=== PATIENT | female | born 1950 | race Caucasian/White ===

== ENCOUNTER 2018-10-01 07:31 | Outpatient (CLI) | payer MEDICARE, OTHER ==
--- NOTE | 2018-10-01 10:58 | Ultrasound Report ---
Reason: PAIN IN RIGHT LEG Procedure Date: 10/01/2018 Accession Number: [id number] / [id number] Procedure: US - Duplex Ext Veins Right CPT Code: FULL RESULT: EXAM: RIGHT LOWER EXTREMITY VENOUS ULTRASOUND EXAM DATE: 10/01/2018 08:47 AM. CLINICAL HISTORY: Right leg pain. COMPARISON: None. TECHNIQUE: Real-time sonographic vascular imaging was performed by the sewing machine bobbin winder through the lower extremity utilizing both color-flow and Doppler spectral analysis. Multiple registered representative static images were saved for review. FINDINGS: Common Femoral Vein (CFV): Normal. CFV-GSV Junction: Normal. Profunda Femoral Vein (PFV): Normal. Femoral Vein (FV) Prox: Normal. Femoral Vein (FV) Mid: Normal. Femoral Vein (FV) Dist: Normal. Popliteal Vein: Normal. Posterior Tibial Veins: Normal. Peroneal Veins: Normal. Contralateral Side CFV: Normal. Other: None. IMPRESSION: No evidence for deep venous thrombosis. RADIA
--- NOTE | 2018-10-02 07:30 | XRAY Report ---
Reason: SCIATICA, RIGHT/ OSTEOARTHRITIS/ PAIN IN LOWER LEG Procedure Date: 10/01/2018 Accession Number: [id number] / [id number] Procedure: XR - Lumbar Spine Complete CPT Code: FULL RESULT: EXAM: LUMBOSACRAL SPINE RADIOGRAPHY EXAM DATE: 10/01/2018 07:45 AM. CLINICAL HISTORY: SCIATICA, RIGHT/ OSTEOARTHRITIS/ PAIN IN LOWER LEG. COMPARISONS: None. TECHNIQUE: 5 views, including oblique views. FINDINGS: Alignment: Normal. No spondylolisthesis or scoliosis. Bones: 5 lumbar vertebrae. No fractures or bone lesions. Disks: Generalized disk space narrowing. Extensive bulky osteophytes with bridging and flowing ossification predominantly along the right side of the spine. Facets: Generalized degenerative changes worst at L4-L5 and L5-S1. Sacroiliac Joints: Unremarkable. Soft Tissues: Unremarkable. IMPRESSION: 1. Generalized degenerative changes with disk space narrowing. 2. Extensive bulky osteophytes with bridging, compatible with diffuse idiopathic skeletal hyperostosis. RADIA
== END 2018-10-01 07:32 | disposition home or self-care (01) ==
LOC: DI 07:31
PROVIDERS: ATTEND Physician Assistant Medical
DX: M79.661 Pain in right lower leg (principal); M51.36 Other intervertebral disc degeneration, lumbar region; M47.816 Spondylosis without myelopathy or radiculopathy, lumbar region; M47.817 Spondylosis without myelopathy or radiculopathy, lumbosacral region; M25.78 Osteophyte, vertebrae
CPT/HCPCS: 72110

== ENCOUNTER 2018-10-03 08:08 | Outpatient (CLI) | payer MEDICARE, OTHER ==
--- NOTE | 2018-10-16 15:28 | Mammography Report ---
Reason: SCREENING MAMMO Procedure Date: 10/03/2018 Accession Number: [id number] / [id number] Procedure: MGS - Screening Mammo Dig Bilat CPT Code: FULL RESULT: EXAM: Screening Mammo Dig Bilat DATE: 10/03/2018 8:40 AM CLINICAL HISTORY: Routine screening. No reported personal history of breast cancer. Family history breast cancer in mother at age 58. TECHNIQUE: (B) - Bilateral CC and MLO views were obtained. COMPARISON: No comparisons available at the time of this dictation; if they become available, an addendum to this report can be issued. PARENCHYMAL PATTERN: (A) - The breasts demonstrate scattered fibroglandular densities bilaterally. FINDINGS: Bilateral breasts: Core biopsy marker in the posterior central left breast. There are no suspicious masses, calcifications, or areas of distortion. IMPRESSION: Benign findings. BI-RADS category 2. RECOMMENDATION: (ANNUAL) - Recommend routine annual screening mammography. BI-RADS CATEGORY: STANDARD QUALIFYING STATEMENTS: 1. This examination was reviewed with the aid of Computer-Aided Detection (CAD). 2. A negative or benign imaging report should not preclude biopsy if clinically suspicious findings are present. 3. Dense breasts may obscure an underlying neoplasm. 4. This examination was reviewed without the aid of 3D breast imaging (tomosynthesis).
== END 2018-10-03 08:09 | disposition home or self-care (01) ==
LOC: DI.S 08:08
PROVIDERS: ATTEND Physician Assistant Medical
DX: Z12.31 Encounter for screening mammogram for malignant neoplasm of breast (principal); Z80.3 Family history of malignant neoplasm of breast
CPT/HCPCS: 77067

== ENCOUNTER 2019-02-20 16:32 | Emergency (ER) | payer MEDICARE, OTHER ==
--- NOTE | 2019-02-20 18:01 | ED Physician Documentation ---
History of Present Illness - Stated complaint Stated Complaint: LIP LAC - Chief complaint Chief Complaint: Laceration - Additonal information Additional information: This is a 68-year-old female who presents a laceration just above her upper lip. She was in her yard and she stepped on a T-stake which hit her in her central upper lip. She had immediate bleeding from the cut and when she looked in the mirror she realized that probably needed stitches. She recently had her tetanus updated. She has slight pain of her front teeth, otherwise no complaints. She did not lose consciousness or hit other parts of her head Review of Systems Skin: reports: Laceration (s) Neurologic: denies: LOC PD PAST MEDICAL HISTORY - Allergies Allergies/Adverse Reactions: Allergies Allergy/AdvReac Type Severity Reaction Status Date / Time Penicillins Allergy Unknown Verified 02/20/19 16:42 - Living Situation Living Arrangement: reports: At home - Social History Does the pt smoke?: No Smoking Status: Never smoker - Family History Family history: reports: Non contributory PD ED PE NORMAL - General General: Alert and oriented X 3 - HEENT HEENT: Other (There is a 1.5 cm laceration on the upper lip. It has some dried blood and slight oozing. The internal mucosa is slightly bruised but intact there is no through and through laceration. The front teeth are stable, there is no crepitus, there is no looseness of any of her teeth. The remainder of her face is nontender) - Neck Neck: Supple, no meningeal sign - Respiratory Respiratory: No respiratory distress - Neuro Neuro: Alert and oriented X 3 Results - Vitals Vitals: Vital Signs - 24 hr 02/20/19 02/20/19 16:39 18:26 Temperature 36.8 C 36.8 C Heart Rate 79 83 Respiratory 18 12 Rate Blood Pressure 179/75 H 110/57 L O2 Saturation 95 97 Oxygen O2 Source Room air Procedures - Laceration (location) lip Length in cm: 1.5 Wound type: Curved Anesthesia: Lidocaine 1%, With bicarb Wound Preparation: Irrigated copiously NS Skin layer closure: Prolene, Size #-0 - enter number (6), Sutures - enter # (3) Other: Patient tolerated well, Tetanus UTD Complexity: Simple PD MEDICAL DECISION MAKING - ED course ED course: Pt presents with a laceration that does not cross the timothy border and is not through and through, but does require repair. It was cleaned and sutured as noted above. She has no signs of facial fracture or other significant trauma. Return precautions and wound care discussed and pt was discharged home. Departure - Departure Disposition: 01 Home, Self Care Clinical Impression: Laceration Condition: Good Instructions: ED Laceration All Follow-Up: Mitra Liriano PA-C [Primary Care Provider] - (In 5 days for suture removal) Comments: I placed 3 nonabsorbable sutures in your lip. These should be removed in around 5 days. Scarring increases if they are left in for more than 7 days. Until the stitches are out please keep a thin layer of Vaseline or antibiotic ointment over the cut, this will help promote healing and prevent scabbing or crusting over the wound. If you are developing signs of infection such as pus or redness expanding from the wound, return to the emergency department. It is okay to shower and run water over the cut but please do not scrub at the stitches as they are very fine and they could break open. Discharge Date/Time: 02/20/19 18:36
[2019-02-20 18:27] VITALS: BP 110/57
== END 2019-02-20 18:36 | disposition home or self-care (01) ==
LOC: ED 16:32
DX: S01.511A Laceration without foreign body of lip, initial encounter (principal); W20.8XXA Other cause of strike by thrown, projected or falling object, initial encounter; Y93.89 Activity, other specified; Y92.007 Garden or yard of unspecified non-institutional (private) residence as the place of occurrence of the external cause
CPT/HCPCS: 12011; 99282

== ENCOUNTER 2019-08-31 08:20 | Outpatient (CLI) | payer MEDICARE, OTHER ==
--- NOTE | 2019-08-31 12:25 | MRI Report ---
PROCEDURE: Lumbar Spine W/O INDICATIONS: LUMBAR PAIN TECHNIQUE: Noncontrast sagittal T1 spin echo and T2 fast echo, sagittal STIR, axial T1 and T2 fast spin echo thr ough the lumbar spine. In cases with scoliosis, additional coronal T2 fast spin echo may be performe d. COMPARISON: None. FINDINGS: Image quality: Excellent. Alignment and Curvature: There is trace L2-L3 and L3-L4 retrolisthesis. Bone Marrow: Reactive endplate changes noted adjacent to the L1-L2, L2-L3, L3-L4, L4-L5 and L5-S1 dis cs. No acute vertebral body compression fractures. Spinal Cord: Conus medullaris terminates at the L2 level. Visualized cord demonstrates normal signa l and size. Paraspinous Soft Tissues: No paravertebral masses. T12-L1: Loss of disc signal. Minimal, diffuse disc bulge. No central stenosis. No neural foraminal n arrowing. No neural compression. L1-L2: Loss of disc signal. Mild, diffuse disc bulge. Mild bilateral facet hypertrophy. Mild narro wing of the central canal. Mild bilateral neural foraminal narrowing. No neural compression. L2-L3: Loss of disc signal and mild loss of disc height. Mild, diffuse disc bulge. Mild bilateral facet hypertrophy. Mild narrowing of the central canal. Mild bilateral neural foraminal narrowing. No neural compression. Multiple fissures noted in the disc annulus. L3-L4: Loss of disc signal and height. Mild, diffuse disc bulge. Moderate bilateral facet hypertrop hy. Mild to moderate narrowing of the central canal. Moderate bilateral neural foraminal narrowing. N o neural compression. Multiple fissures noted in the disc annulus. L4-L5: Loss of disc signal. Mild, diffuse disc bulge. Mild right and moderate left facet hypertroph y. Mild narrowing of the central canal. Severe bilateral neural foraminal narrowing with compression of the exiting L4 nerve roots. Multiple fissures noted in the disc annulus. L5-S1: Loss of disc signal. Mild, diffuse disc bulge. Moderate right and severe left facet hypertro phy. No central stenosis. Mild right and moderate to severe left neural foraminal narrowing with slig ht compression of the exiting left L5 nerve root. IMPRESSION: 1. Multilevel degenerative disc disease. 2. Multilevel facet arthropathy. 3. No significant central canal narrowing. 4. Severe bilateral L4-L5 neural foraminal narrowing with compression of the exiting bilateral L4 ner ve roots. Moderate to severe left L5-S1 neural foraminal narrowing with slight compression of the exi ting left L5 nerve root. Reviewed by: Katherine Lin MD, PhD on 08/31/2019 12:24 PM PDT Approved by: Katherine Lin MD, PhD on 08/31/2019 12:24 PM PDT Station ID: [id number]
== END 2019-08-31 08:21 | disposition home or self-care (01) ==
LOC: DI 08:20
PROVIDERS: ATTEND Physical Medicine & Rehabilitation Pain Medicine
DX: M51.36 Other intervertebral disc degeneration, lumbar region (principal)
CPT/HCPCS: 72148

== ENCOUNTER 2019-11-26 12:33 | Outpatient (CLI) | payer MEDICARE, OTHER ==
[2019-11-26 15:08] LABS: BASOPHILS % (AUTO) 0.7 %; EOSINOPHILS # (AUTO) 0.2 10^3/uL (0.0-0.7); EOSINOPHILS % (AUTO) 3.8 %; HGB - HEMOGLOBIN 13.3 g/dL (12.0-16.0); LYMPHOCYTES # (AUTO) 1.6 10^3/uL (1.5-3.5); LYMPHOCYTES % (AUTO) 34.6 %; MEAN CORPUSCULAR HEMOGLOBIN 30.5 pg (27.0-31.0); MEAN CORPUSCULAR VOLUME 95.2 fL (81.0-99.0); MONOCYTES # (AUTO) 0.5 10^3/uL (0.0-1.0); MONOCYTES % (AUTO) 10.5 %; NEUTROPHILS # (AUTO) 2.3 10^3/uL (1.5-6.6); NEUTROPHILS % (AUTO) 50.2 %; PLT - PLATELET COUNT 299 10^3/uL (130-450); RED BLOOD COUNT 4.36 10^6/uL (4.20-5.40); RED CELL DISTRIBUTION WIDTH 13.2 % (12.0-15.0); WHITE BLOOD COUNT 4.5 x10^3/uL (4.8-10.8)
[2019-11-26 15:39] LABS: ALBUMIN 4.1 g/dL (3.2-5.5); ALBUMIN/GLOBULIN RATIO 1.5 (1.0-2.2); ALKALINE PHOSPHATASE 85 IU/L (42-121); ALT ALANINE AMINOTRANSFERASE 25 IU/L (10-60); AST ASPARTATE AMINOTRANSFERASE 27 IU/L (10-42); BILIRUBIN,TOTAL 0.9 mg/dL (0.2-1.0); BUN - BLOOD UREA NITROGEN 12 mg/dL (6-20); CALCIUM 9.1 mg/dL (8.5-10.3); CARBON DIOXIDE - CO2 26 mmol/L (21-32); CHLORIDE 105 mmol/L (101-111); CHOL/HDL RATIO 2.4 (<4.4); CHOLESTEROL 208 mg/dL; CREATININE 0.6 mg/dL (0.4-1.0); GLUCOSE 107 mg/dL (70-100); HDL CHOLESTEROL 88 mg/dL; LDL CHOLESTEROL,CALCULATED 105 mg/dL; LDL/HDL RATIO 1.2 (<4.4); SODIUM 138 mmol/L (135-145); TOTAL PROTEIN 6.8 g/dL (6.7-8.2); VLDL CHOLESTEROL 15 mg/dL
== END 2019-11-26 12:34 | disposition home or self-care (01) ==
LOC: LAB.S 12:33
PROVIDERS: ATTEND Registered Nurse
DX: R73.01 Impaired fasting glucose (principal); Z86.39 Personal history of other endocrine, nutritional and metabolic disease; I10 Essential (primary) hypertension
CPT/HCPCS: 36415; 80053; 80061; 83721; 84443; 85025

== ENCOUNTER 2019-12-23 12:11 | Outpatient (CLI) | payer MEDICARE, OTHER ==
--- NOTE | 2019-12-24 03:31 | Ultrasound Report ---
PROCEDURE: Carotid Doppler Complete INDICATIONS: LT CAROTID BRUIT TECHNIQUE: Color and pulse Doppler interrogation was performed of both carotid systems, with image documentation and velocity measurements. COMPARISON: None. FINDINGS: Right side: Common carotid artery peak systolic velocity: 104 cm/sec. Internal carotid artery peak systolic velocity: 174 cm/sec. Internal carotid artery end diastolic velocity: 45 cm/sec. External carotid artery peak systolic velocity: 76 cm/sec. ICA/CCA peak systolic ratio: 1.7 . Thomason scale imaging description: Mild soft plaque Percent internal carotid artery stenosis: 50-69% stenosis within the proximal right internal carotid artery. . Vertebral artery: Flow direction is antegrade. Left side: Common carotid artery peak systolic velocity: 71 cm/sec. Internal carotid artery peak systolic velocity: 218 cm/sec. Internal carotid artery end diastolic velocity: 58 cm/sec. External carotid artery peak systolic velocity: 80 cm/sec. ICA/CCA peak systolic ratio: 3.1 . Thomason scale imaging description: Mild soft plaque Percent internal carotid artery stenosis: 50-69% stenosis . Vertebral artery: Flow direction is antegrade. IMPRESSION: 50-69% stenosis within the proximal internal carotid arteries bilaterally. The estimate of stenosis included in the report of the imaging study was calculated using the NASCET method Reviewed by: Cam Nicole MD on 12/23/2019 2:40 PM PDT Approved by: Cam Nicole MD on 12/23/2019 2:40 PM PDT Station ID: [id number]
== END 2019-12-23 12:12 | disposition home or self-care (01) ==
LOC: DI 12:11
PROVIDERS: ATTEND Registered Nurse
DX: I65.23 Occlusion and stenosis of bilateral carotid arteries (principal)
CPT/HCPCS: 93880

== ENCOUNTER 2019-12-23 12:13 | Outpatient (CLI) | payer MEDICARE, OTHER ==
--- NOTE | 2019-12-23 15:56 | DEXA Report ---
PROCEDURE: Dexa Spine and/or Hip INDICATIONS: POST MENOPAUSAL TECHNIQUE: Dual energy x-ray absorptiometry (DXA) was performed on a LoopIt System. Regions measur ed are the AP Spine, femoral neck, and if needed forearm. COMPARISON: None. FINDINGS: Left Hip: Bone Mineral Density 1.054 g/cm/cm,T score 0.4, normal Left Femoral Neck: Bone Mineral Density 0.917 g/cm/cm, T score -0.9, normal Left forearm (radius total): Bone Mineral Density 0.701 g/cm/cm, T score 0.4, normal (T score greater or equal to -1.0: NORMAL) (T score from -1.1 to -2.4: OSTEOPENIA) (T score less than or equal to -2.5 to: OSTEOPOROSIS) Impression: Normal bone mineral density of the left hip, left femoral neck, and left forearm. Patients with diagnosis of osteoporosis or osteopenia should have regular bone mineral density assess ment. For those eligible for Medicare, routine testing is allowed once every 2 years. Testing frequ ency can be increased for patients who have rapidly progressing disease or for those who are receivin g medical therapy to restore bone mass. Reviewed by: Cam Nicole MD on 12/23/2019 3:55 PM PDT Approved by: Cam Nicole MD on 12/23/2019 3:55 PM PDT Station ID: [id number]
== END 2019-12-23 12:14 | disposition home or self-care (01) ==
LOC: DI 12:13
PROVIDERS: ATTEND Registered Nurse
DX: Z78.0 Asymptomatic menopausal state (principal); I65.23 Occlusion and stenosis of bilateral carotid arteries
CPT/HCPCS: 77080; 77081; 93880

== ENCOUNTER 2019-12-23 12:14 | Outpatient (CLI) | payer MEDICARE, OTHER ==
--- NOTE | 2019-12-24 15:24 | Mammography Report ---
BILATERAL DIGITAL SCREENING MAMMOGRAM 3D/2D: 12/23/2019 CLINICAL: Routine screening. Family history of breast cancer. Comparison is made to exam dated: 10/03/2018 mammogram - [facility]. The tissue of both breasts is predominantly fatty. There is a biopsy clip in the left breast. No significant masses, calcifications, or other findings are seen in either breast. There has been no significant interval change. IMPRESSION: NEGATIVE There is no mammographic evidence of malignancy. A 1 year screening mammogram is recommended. This exam was interpreted at Station ID: [id number]. NOTE: For mammograms, a report in lay terms will be sent to the patient. Approximately 15% of breast malignancies will not be visualized mammographically. In the management of a palpable breast mass, a negative mammogram must not discourage biopsy of a clinically suspicious lesion. Electronically Signed By: Allison anderson/césarrad:12/23/2019 17:57:25 ACR BI-RADS Category 1: Negative 3341F PARENCHYMAL PATTERN: (F) - The breast(s) demonstrate(s) diffuse fatty replacement. BI-RADS CATEGORY: (1) - 1 RECOMMENDATION: (ANNUAL) - Recommend routine annual screening mammography. [id number] 1 year screening LATERALITY: (B)
== END 2019-12-23 12:15 | disposition home or self-care (01) ==
LOC: DI 12:14
PROVIDERS: ATTEND Registered Nurse
DX: Z12.31 Encounter for screening mammogram for malignant neoplasm of breast (principal); Z80.3 Family history of malignant neoplasm of breast
CPT/HCPCS: 77063; 77067

== ENCOUNTER 2021-06-12 08:10 | Outpatient (CLI) | payer MEDICARE, OTHER ==
[2021-06-12 14:58] LABS: BASOPHILS # (AUTO) 0.1 10^3/uL (0.0-0.1); EOSINOPHILS # (AUTO) 0.2 10^3/uL (0.0-0.7); EOSINOPHILS % (AUTO) 3.7 %; HCT - HEMATOCRIT 39.6 % (37.0-47.0); HGB - HEMOGLOBIN 12.7 g/dL (12.0-16.0); LYMPHOCYTES # (AUTO) 2.1 10^3/uL (1.5-3.5); LYMPHOCYTES % (AUTO) 41.3 %; MEAN CORPUSCULAR HEMOGLOBIN 29.9 pg (27.0-31.0); MEAN CORPUSCULAR HGB CONC 32.1 g/dL (32.0-36.0); MEAN CORPUSCULAR VOLUME 93.2 fL (81.0-99.0); MEAN PLATELET VOLUME 10.1 fL (7.9-10.8); MONOCYTES # (AUTO) 0.6 10^3/uL (0.0-1.0); MONOCYTES % (AUTO) 10.7 %; NEUTROPHILS # (AUTO) 2.2 10^3/uL (1.5-6.6); NEUTROPHILS % (AUTO) 43.1 %; PLT - PLATELET COUNT 324 10^3/uL (130-450); RED BLOOD COUNT 4.25 10^6/uL (4.20-5.40); RED CELL DISTRIBUTION WIDTH 13.2 % (12.0-15.0); WHITE BLOOD COUNT 5.1 x10^3/uL (4.8-10.8)
[2021-06-12 15:25] LABS: ALBUMIN 3.6 g/dL (3.2-5.5); ALBUMIN/GLOBULIN RATIO 1.4 (1.0-2.2); ALKALINE PHOSPHATASE 66 IU/L (42-121); ALT ALANINE AMINOTRANSFERASE 23 IU/L (10-60); AST ASPARTATE AMINOTRANSFERASE 23 IU/L (10-42); BILIRUBIN,TOTAL 0.7 mg/dL (0.2-1.0); BUN - BLOOD UREA NITROGEN 14 mg/dL (6-20); CALCIUM 8.8 mg/dL (8.5-10.3); CARBON DIOXIDE - CO2 28 mmol/L (21-32); CHLORIDE 96 mmol/L (101-111); CHOL/HDL RATIO 2.4 (<4.4); CHOLESTEROL 196 mg/dL; CREATININE 0.5 mg/dL (0.4-1.0); GFR - MDRD 122 (>89); GLUCOSE 107 mg/dL (70-100); HDL CHOLESTEROL 83 mg/dL; LDL CHOLESTEROL,CALCULATED 99 mg/dL; LDL/HDL RATIO 1.2 (<4.4); POTASSIUM 3.4 mmol/L (3.5-5.0); SODIUM 133 mmol/L (135-145); TOTAL PROTEIN 6.1 g/dL (6.7-8.2); TRIGLYCERIDES 68 mg/dL; VLDL CHOLESTEROL 14 mg/dL
[2021-06-12 15:30] LABS: THYROID STIMULATING HORMONE 4.43 uIU/mL (0.34-5.60)
== END 2021-06-12 08:11 | disposition home or self-care (01) ==
LOC: LAB.S 08:10
PROVIDERS: ATTEND Registered Nurse
DX: Z00.00 Encounter for general adult medical examination without abnormal findings (principal); I10 Essential (primary) hypertension; Z86.39 Personal history of other endocrine, nutritional and metabolic disease
CPT/HCPCS: 36415; 80053; 80061; 83721; 84443; 85025

== ENCOUNTER 2021-08-04 11:50 | Outpatient (CLI) | payer MEDICARE, OTHER | END 2021-08-04 11:51 | disposition home or self-care (01) | LOC: LAB.S 11:50 | PROVIDERS: ATTEND Registered Nurse | DX: G25.81 Restless legs syndrome (principal); E87.6 Hypokalemia; E87.1 Hypo-osmolality and hyponatremia | CPT/HCPCS: 36415; 82728; 83540; 84132; 84295; 84466 ==

== ENCOUNTER 2021-09-19 08:41 | Outpatient (CLI) | payer MEDICARE, OTHER ==
--- NOTE | 2021-09-19 11:57 | Mammography Report ---
BILATERAL DIGITAL SCREENING MAMMOGRAM 3D/2D: 09/19/2021 CLINICAL: Routine screening. Family history of breast cancer. Comparison is made to exams dated: 12/23/2019 mammogram and 10/03/2018 mammogram - [facility]. The tissue of both breasts is predominantly fatty. There is a biopsy clip in the left breast. No significant masses, calcifications, or other findings are seen in either breast. There has been no significant interval change. IMPRESSION: NEGATIVE There is no mammographic evidence of malignancy. A 1 year screening mammogram is recommended. Based on the Tyrer Cuzick model (a risk assessment model) the patients lifetime risk is 4.4% and her 10 year risk is 3.0%. According to the ACR, ACS, and NCCN guidelines, an annual breast MRI exam anette g with mammogram is recommended if the patients lifetime risk is 20% or greater. This exam was interpreted at Station ID: [id number]. NOTE: For mammograms, a report in lay terms will be sent to the patient. Approximately 15% of breast malignancies will not be visualized mammographically. In the management of a palpable breast mass, a negative mammogram must not discourage biopsy of a clinically suspicious lesion. Electronically Signed By: Al Weems acr/penrad:09/19/2021 09:28:23 ACR BI-RADS Category 1: Negative 3341F PARENCHYMAL PATTERN: (F) - The breast(s) demonstrate(s) diffuse fatty replacement. BI-RADS CATEGORY: (1) - 1 RECOMMENDATION: (ANNUAL) - Recommend routine annual screening mammography. [id number] 1 year screening LATERALITY: (B)
== END 2021-09-19 08:42 | disposition home or self-care (01) ==
LOC: DI.S 08:41
PROVIDERS: ATTEND Registered Nurse
DX: Z12.31 Encounter for screening mammogram for malignant neoplasm of breast (principal); Z80.3 Family history of malignant neoplasm of breast

== ENCOUNTER 2021-09-23 21:45 | Emergency (ER) | payer MEDICARE, OTHER ==
[2021-09-23] MEDS ORDERED: LORazepam 2 MG/ML VIAL IVP STA (23:57)
[2021-09-23] MEDS ORDERED: MORPHINE 2 MG/ML CARPUJECT IVP STA (23:57)
[2021-09-23] MEDS ORDERED: ONDANSETRON 4 MG/2 ML VIAL IVP STA (23:57)
--- NOTE | 2021-09-24 | ED Physician Documentation ---
PD HPI BACK PAIN - Stated complaint Stated Complaint: FALL,BACK PX - Chief complaint Chief Complaint: Trauma Ch/Bk - Additional information Additional information: Patient is 71-year-old female presenting to the emergency department status post fall with back pain. Reports was outside working, tripped on a tree root, struck her head and experienced a spasming pain in the mid of her back radiating into her groin. Takes daily aspirin but no other antiplatelet or blood thinning medications. No loss of consciousness. Since the event reports has had intermittent spasming pain radiating down into her groin. Has been able to ambulate since the event. He denies any lower extremity paresthesias. Does report a history of sciatica on the right side in the past and states that this feels somewhat similar. Review of Systems Ten Systems: 10 systems reviewed and negative Constitutional: denies: Fever Eyes: denies: Loss of vision Ears: denies: Loss of hearing Nose: denies: Rhinorrhea / runny nose Throat: denies: Dental pain / toothache Cardiac: denies: Chest pain / pressure Respiratory: denies: Dyspnea GI: denies: Abdominal Pain : denies: Dysuria Skin: denies: Rash Musculoskeletal: reports: Back pain PD PAST MEDICAL HISTORY - Past Medical History Past Medical History: Yes Cardiovascular: Hypertension, High cholesterol Psych: Depression - Past Surgical History Past Surgical History: Yes Ortho: Carpal Tunnel surgery /WASTE COT[employer]ER: Hysterectomy, Oophrectomy, Other - Present Medications Home Medications: Ambulatory Orders Medication Instructions Recorded Confirmed Amlodipine Besylate [Norvasc] 10 mg PO DAILY 09/23/21 09/23/21 Escitalopram [Lexapro] 10 mg PO DAILY 09/23/21 09/23/21 hydroCHLOROthiazide [Hydrodiuril] 12.5 mg PO DAILY 09/23/21 09/23/21 Cyclobenzaprine [Flexeril] 10 mg PO TID PRN #20 tablet 09/24/21 Ibuprofen [Motrin] 800 mg PO Q8H PRN #30 tablet 09/24/21 Lidocaine Patch 5% [Lidoderm Patch] 1 patch TOP DAILY PRN #10 patch 09/24/21 - Allergies Allergies/Adverse Reactions: Allergies Allergy/AdvReac Type Severity Reaction Status Date / Time Penicillins Allergy Unknown Verified 09/23/21 21:56 - Social History Does the pt smoke?: No Smoking Status: Never smoker Does the pt drink ETOH?: Yes Does the pt have substance abuse?: No - Immunizations Immunizations are current?: Yes - POLST Patient has POLST: No PD ED PE NORMAL - Vitals Vital signs reviewed: Yes - General General: Other (Patient has brief episodes of exquisite pain and what appears to be muscle spasms.). No: No acute distress - HEENT HEENT: Atraumatic - Neck Neck: Supple, no meningeal sign, No bony TTP, C-Spine cleared by NEXUS criteria - Cardiac Cardiac: RRR - Respiratory Respiratory: No respiratory distress - Abdomen Abdomen: Normal bowel sounds - Female Female : Deferred - Rectal Rectal: Deferred - Back Back: No CVA TTP, No spinal TTP, Other (Tenderness to palpation along the right paraspinal back muscles.) - Extremities Extremities: No deformity - Neuro Neuro: Alert and oriented X 3, wrapper hand 2-12 intact, No motor deficit, No sensory deficit, Normal speech Results - Vitals Vitals: Vital Signs - 24 hr 09/23/21 09/23/21 09/24/21 21:53 22:05 00:20 Temperature 36.8 C 36.6 C Heart Rate 85 74 100 Respiratory 16 16 18 Rate Blood Pressure 183/87 H 190/79 H 198/84 H O2 Saturation 98 98 100 09/24/21 09/24/21 00:55 01:38 Temperature 36.2 C L Heart Rate 68 61 Respiratory 16 15 Rate Blood Pressure 168/83 H 179/76 H O2 Saturation 96 97 Oxygen O2 Source Room air - Labs Labs: Laboratory Tests 09/24/21 09/24/21 00:05 00:05 WBC 9.8 RBC 4.55 Hgb 13.5 Hct 40.7 MCV 89.5 MCH 29.7 MCHC 33.2 RDW 13.2 Plt Count 346 MPV 9.5 Neut # (Auto) 7.8 H Lymph # (Auto) 1.4 L Steele # (Auto) 0.5 Eos # (Auto) 0.0 Baso # (Auto) 0.0 Absolute Nucleated RBC 0.00 Nucleated RBC % 0.0 Sodium 135 Potassium 3.4 L Chloride 100 L Carbon Dioxide 25 Anion Gap 10.0 BUN 15 Creatinine 0.6 Estimated GFR (MDRD) 99 Glucose 144 H Calcium 9.5 Total Bilirubin 0.5 AST 26 ALT 28 Alkaline Phosphatase 87 Total Protein 7.7 Albumin 4.5 Globulin 3.2 Albumin/Globulin Ratio 1.4 Lipase 29 PD MEDICAL DECISION MAKING - ED course Complexity details: reviewed results, re-evaluated patient, d/w patient, d/w family ED course: Patient is 71-year-old female presenting to the emergency department status post fall with right-sided low back pain, muscle spasms and closed head injury. Afebrile, hemodynamically stable. CT head nonacute. Labs obtained within normal limits. CT of the abdomen and pelvis also nonacute. Patient given medication for symptomatic management. Will discharge on medication for pain control as well as muscle relaxer. Encouraged fluid hydration, light activity as tolerated, careful follow-up with primary care. Departure - Departure Disposition: Home, Self Care Clinical Impression: Fall, Closed head injury, Back pain Prescriptions: Cyclobenzaprine [Flexeril] 10 mg PO TID PRN #20 tablet PRN Reason: Spasms Lidocaine Patch 5% [Lidoderm Patch] 1 patch TOP DAILY PRN #10 patch PRN Reason: pain Ibuprofen [Motrin] 800 mg PO Q8H PRN #30 tablet PRN Reason: PAIN &/OR FEVER Comments: Thank you for allowing us to care for you today at [facility]. Today in the emergency department your evaluated for any possible life- threatening medical emergency. All the testing performed in the emergency department including your blood work, CT of your head, and the CT of your back, lower abdomen and pelvis were all very reassuring. I have sent some medications to [facility] in [place] to help with your symptoms. Also be discharging you with a short number of a strong narcotic pain medication. Please use this only as needed. Please be aware that this medication is both sedating and habit-forming. When she drink plenty of fluids over the course of the next few days. I recommend gentle activity as tolerated is getting pleated mobility can make back pain such as which you are experiencing worse. Please make a follow-up appoint with your primary care doctor soon as possible. If anytime you develop any new or worsening symptoms please not hesitate to return to the emergency department.
[2021-09-24 00:17] LABS: BASOPHILS % (AUTO) 0.4 %; EOSINOPHILS % (AUTO) 0.4 %; HCT - HEMATOCRIT 40.7 % (37.0-47.0); HGB - HEMOGLOBIN 13.5 g/dL (12.0-16.0); LYMPHOCYTES # (AUTO) 1.4 10^3/uL (1.5-3.5); LYMPHOCYTES % (AUTO) 14.5 %; MEAN CORPUSCULAR HEMOGLOBIN 29.7 pg (27.0-31.0); MEAN CORPUSCULAR HGB CONC 33.2 g/dL (32.0-36.0); MEAN CORPUSCULAR VOLUME 89.5 fL (81.0-99.0); MEAN PLATELET VOLUME 9.5 fL (7.9-10.8); MONOCYTES # (AUTO) 0.5 10^3/uL (0.0-1.0); MONOCYTES % (AUTO) 4.8 %; NEUTROPHILS # (AUTO) 7.8 10^3/uL (1.5-6.6); NEUTROPHILS % (AUTO) 79.7 %; PLT - PLATELET COUNT 346 10^3/uL (130-450); RED BLOOD COUNT 4.55 10^6/uL (4.20-5.40); RED CELL DISTRIBUTION WIDTH 13.2 % (12.0-15.0); WHITE BLOOD COUNT 9.8 x10^3/uL (4.8-10.8)
[2021-09-24 00:31] LABS: ALBUMIN 4.5 g/dL (3.2-5.5); ALBUMIN/GLOBULIN RATIO 1.4 (1.0-2.2); BILIRUBIN,TOTAL 0.5 mg/dL (0.2-1.0); CALCIUM 9.5 mg/dL (8.5-10.3); CREATININE 0.6 mg/dL (0.4-1.0); POTASSIUM 3.4 mmol/L (3.5-5.0); TOTAL PROTEIN 7.7 g/dL (6.7-8.2)
--- NOTE | 2021-09-24 01:54 | CT Report ---
PROCEDURE: Abdomen/Pelvis W INDICATIONS: Fall, rt low back and groin pain CONTRAST: IV CONTRAST: Optiray 320 ml: 100 PO CONTRAST: *NO PO CONTRAST TECHNIQUE: After the administration of intravenous contrast, 5 mm thick sections acquired from the diaphragms to the symphysis. 5 mm thick coronal and sagittal reformats were acquired. For radiation dose reducti on, the following was used: automated exposure control, adjustment of mA and/or kV according to andry ent size. COMPARISON: None. FINDINGS: Image quality: Excellent. ABDOMEN: Lung bases: Lung bases are clear. Heart size is normal. Solid organs: Liver and spleen are normal in size and enhancement. Gallbladder normal Biliary syst em is non dilated. Pancreas enhances normally. No adrenal nodules. Kidneys demonstrate normal size and enhancement, without hydronephrosis. Peritoneum and bowel: Bowel loops demonstrate normal wall thickness and caliber. No free fluid or a ir. Nodes and vessels: No retroperitoneal or mesenteric adenopathy by size criteria. Aorta and inferior vena cava are normal in size. Miscellaneous: No ventral hernias. PELVIS: Genitourinary: Bladder wall thickness is normal. Miscellaneous: No inguinal hernias or adenopathy. Bones: No suspicious bony lesions. No vertebral body compression fractures. IMPRESSION: No acute finding. Reviewed by: Devante Santiago MD on 09/24/2021 1:53 AM PDT Approved by: Devante Santiago MD on 09/24/2021 1:53 AM PDT Station ID: [id number]
--- NOTE | 2021-09-24 01:56 | CT Report ---
PROCEDURE: HEAD WO INDICATIONS: fall, closd head injury, on antiplatlet medication TECHNIQUE: Noncontrast 4.5 mm thick angled axial sections acquired from the foramen magnum to the vertex. For r adiation dose reduction, the following was used: automated exposure control, adjustment of mA and/or kV according to patient size. COMPARISON: None. FINDINGS: Image quality: Excellent. CSF spaces: Basal cisterns are patent. No extra-axial fluid collections. Ventricles are normal in size and shape. Brain: No midline shift. No intracranial masses or hemorrhage. Thomason-white matter interface is norm al. Skull and face: Calvarium and visualized facial bones are intact, without suspicious lesions. Sinuses: Visualized sinuses and mastoids are clear. IMPRESSION: No acute intracranial finding. Reviewed by: Devante Santiago MD on 09/24/2021 1:54 AM PDT Approved by: Devante Santiago MD on 09/24/2021 1:54 AM PDT Station ID: [id number]
[2021-09-24] MEDS ORDERED: oxyCODONE/ACET 5/325 Prepack 4 PO STA (02:08)
[2021-09-24] MEDS ORDERED: oxyCODONE 5 MG TABLET PO STA (02:08)
[2021-09-24] MEDS ORDERED: diazePAM 5 MG TABLET PO STA (02:10)
[2021-09-24 02:38] VITALS: BP 181/79
== END 2021-09-24 02:35 | disposition home or self-care (01) ==
LOC: ED 21:45
DX: M54.9 Dorsalgia, unspecified (principal); S09.90XA Unspecified injury of head, initial encounter; W01.0XXA Fall on same level from slipping, tripping and stumbling without subsequent striking against object, initial encounter; Y93.89 Activity, other specified; Y92.89 Other specified places as the place of occurrence of the external cause; Y99.8 Other external cause status
CPT/HCPCS: 36415; 70450; 74177; 80053; 83690; 85025; 96374; 96375; 99283; 99284; A9270; J2060; Q9967

== ENCOUNTER 2022-05-09 10:43 | Outpatient (CLI) | payer MEDICARE, OTHER ==
[2022-05-09 16:14] LABS: ALBUMIN 4.2 g/dL (3.2-5.5); ALBUMIN/GLOBULIN RATIO 1.5 (1.0-2.2); ALKALINE PHOSPHATASE 87 IU/L (42-121); ALT ALANINE AMINOTRANSFERASE 27 IU/L (10-60); AST ASPARTATE AMINOTRANSFERASE 25 IU/L (10-42); BILIRUBIN,TOTAL 0.6 mg/dL (0.2-1.0); BUN - BLOOD UREA NITROGEN 14 mg/dL (6-20); CALCIUM 9.4 mg/dL (8.5-10.3); CARBON DIOXIDE - CO2 30 mmol/L (21-32); CHLORIDE 102 mmol/L (101-111); CREATININE 0.5 mg/dL (0.4-1.0); GFR - MDRD 122 (>89); GLUCOSE 122 mg/dL (70-100); POTASSIUM 3.8 mmol/L (3.5-5.0); SODIUM 139 mmol/L (135-145); URIC ACID 3.9 mg/dL (2.6-7.2)
[2022-05-09 16:20] LABS: THYROID STIMULATING HORMONE 2.26 uIU/mL (0.34-5.60)
[2022-05-09 16:34] LABS: CRP - C-REACTIVE PROTEIN < 1.0 mg/dL (0-1.0)
[2022-05-09 20:07] LABS: ESTIMATED AVERAGE GLUCOSE 123 mg/dL (70-100); HEMOGLOBIN A1c% 5.9 % (4.27-6.07)
== END 2022-05-09 10:44 | disposition home or self-care (01) ==
LOC: LAB.S 10:43
PROVIDERS: ATTEND Nurse Practitioner
DX: R53.83 Other fatigue (principal); M79.674 Pain in right toe(s); R73.01 Impaired fasting glucose
CPT/HCPCS: 36415; 80053; 83036; 84443; 84550; 85651; 86140

== ENCOUNTER 2022-11-30 08:00 | Outpatient (CLI) | payer MEDICARE, OTHER | END 2022-11-30 23:59 | disposition home or self-care (01) | LOC: LAB.S 08:00 | PROVIDERS: ATTEND Registered Nurse | DX: R35.0 Frequency of micturition (principal) | CPT/HCPCS: 87086 ==

== ENCOUNTER 2023-11-13 10:55 | Outpatient (CLI) | payer MEDICARE, OTHER ==
[2023-11-13 11:13] LABS: BASOPHILS # (AUTO) 0.1 10^3/uL (0.0-0.1); BASOPHILS % (AUTO) 1.1 %; EOSINOPHILS # (AUTO) 0.2 10^3/uL (0.0-0.7); EOSINOPHILS % (AUTO) 2.9 %; HCT - HEMATOCRIT 42.3 % (37.0-47.0); HGB - HEMOGLOBIN 13.3 g/dL (12.0-16.0); LYMPHOCYTES # (AUTO) 1.9 10^3/uL (1.5-3.5); LYMPHOCYTES % (AUTO) 34.2 %; MEAN CORPUSCULAR HEMOGLOBIN 29.8 pg (27.0-31.0); MEAN CORPUSCULAR HGB CONC 31.4 g/dL (32.0-36.0); MEAN CORPUSCULAR VOLUME 94.8 fL (81.0-99.0); MEAN PLATELET VOLUME 9.7 fL (7.9-10.8); MONOCYTES # (AUTO) 0.5 10^3/uL (0.0-1.0); MONOCYTES % (AUTO) 9.8 %; NEUTROPHILS # (AUTO) 2.9 10^3/uL (1.5-6.6); NEUTROPHILS % (AUTO) 51.8 %; PLT - PLATELET COUNT 309 10^3/uL (130-450); RED BLOOD COUNT 4.46 10^6/uL (4.20-5.40); RED CELL DISTRIBUTION WIDTH 13.2 % (12.0-15.0); WHITE BLOOD COUNT 5.5 x10^3/uL (4.8-10.8)
[2023-11-13 11:28] LABS: ALKALINE PHOSPHATASE 75 IU/L (42-121); ALT ALANINE AMINOTRANSFERASE 16 IU/L (10-60); AST ASPARTATE AMINOTRANSFERASE 15 IU/L (10-42); BILIRUBIN,TOTAL 0.4 mg/dL (0.2-1.0); BUN - BLOOD UREA NITROGEN 15 mg/dL (6-20); CALCIUM 9.2 mg/dL (8.5-10.3); CARBON DIOXIDE - CO2 31 mmol/L (21-32); CHLORIDE 101 mmol/L (101-111); CHOL/HDL RATIO 2.3 (<4.4); CHOLESTEROL 197 mg/dL; CREATININE 0.6 mg/dL (0.6-1.3); GFR - MDRD 98 (>89); GLUCOSE 108 mg/dL (74-104); HDL CHOLESTEROL 85 mg/dL; LDL CHOLESTEROL,CALCULATED 97 mg/dL; LDL/HDL RATIO 1.1 (<4.4); POTASSIUM 4.4 mmol/L (3.5-4.5); SODIUM 135 mmol/L (135-145); TRIGLYCERIDES 77 mg/dL; VLDL CHOLESTEROL 15 mg/dL
== END 2023-11-13 10:56 | disposition home or self-care (01) ==
LOC: LAB 10:55
PROVIDERS: ATTEND Registered Nurse
DX: Z13.228 Encounter for screening for other metabolic disorders (principal); Z13.220 Encounter for screening for lipoid disorders; Z13.0 Encounter for screening for diseases of the blood and blood-forming organs and certain disorders involving the immune mechanism; Z13.29 Encounter for screening for other suspected endocrine disorder
CPT/HCPCS: 36415; 80053; 80061; 83721; 84443; 85025

== ENCOUNTER 2023-11-21 14:11 | Outpatient (CLI) | payer MEDICARE, OTHER | END 2023-11-21 14:12 | disposition home or self-care (01) | LOC: DI 14:11 | PROVIDERS: ATTEND Registered Nurse | DX: Z53.9 Procedure and treatment not carried out, unspecified reason (principal) ==

== ENCOUNTER 2023-11-21 14:11 | Outpatient (CLI) | payer MEDICARE, OTHER ==
--- NOTE | 2023-11-22 16:06 | Mammography Report ---
BILATERAL DIGITAL SCREENING MAMMOGRAM 3D/2D: 11/21/2023 CLINICAL: Routine screening. Comparison is made to exams dated: 09/19/2021 mammogram, 10/03/2018 mammogram, and 12/23/2019 mammogram - [facility]. The breasts are almost entirely fatty (category a/<25% glandular tissue). There is a biopsy clip in the left breast. No significant masses, calcifications, or other findings are seen in either breast. There has been no significant interval change. IMPRESSION: NEGATIVE There is no mammographic evidence of malignancy. A 1 year screening mammogram is recommended. Based on the Tyrer Cuzick model (a risk assessment model) the patient's lifetime risk is 3.9% and her 10 year risk is 3.2%. According to the ACR, ACS, and NCCN guidelines, an annual breast MRI exam anette g with mammogram is recommended if the patient's lifetime risk is 20% or greater. This exam was interpreted at Station ID: [id number]. NOTE: For mammograms, a report in lay terms will be sent to the patient. Approximately 15% of breast malignancies will not be visualized mammographically. In the management of a palpable breast mass, a negative mammogram must not discourage biopsy of a clinically suspicious lesion. Electronically Signed By: Len smith/marjorie:11/22/2023 11:33:23 letter sent: No_Letter ACR BI-RADS Category 1: Negative PARENCHYMAL PATTERN: (F) - The breast(s) demonstrate(s) diffuse fatty replacement. BI-RADS CATEGORY: (1) - 1 RECOMMENDATION: (ANNUAL) - Recommend routine annual screening mammography. [id number] 1 year screening LATERALITY: (B)
== END 2023-11-21 14:12 | disposition home or self-care (01) ==
LOC: DI 14:11
PROVIDERS: ATTEND Registered Nurse
DX: Z12.31 Encounter for screening mammogram for malignant neoplasm of breast (principal)